=== PATIENT | female | born 1970 | race Hispanic/Latino ===

== ENCOUNTER 2020-01-23 | Emergency (ER) | payer SELFPAY ==
--- NOTE | 2020-01-23 18:38 | ER ---
Nurse's Notes [facility] Name: Eugenia Singleton Age: 49 yrs Sex: Female : 1970 Arrival Date: 01/23/2020 Time: 18:13 Bed 16 Private MD: Diagnosis: Rash and other nonspecific skin eruption Presentation: 01/22 18:16 Chief complaint: Patient states: Rash on R arm x 2 days. Reports itchiness on R arm and ca1 now starting on R side of neck. Denies cough, congestion and fever. Coronavirus screen: Patient denies fever greater than 100.4F, cough, shortness of breath, or difficulty breathing. Proceed with normal triage process. Ebola Screen: Patient negative for fever greater than or equal to 101.5 degrees Fahrenheit, and additional compatible Ebola Virus Disease symptoms Patient denies exposure to infectious person. Patient denies travel to an Ebola-affected area in the 21 days before illness onset. No symptoms or risks identified at this time. Initial Sepsis Screen: Does the patient meet any 2 criteria? No. Patient's initial sepsis screen is negative. Does the patient have a suspected source of infection? No. Patient's initial sepsis screen is negative. Risk Assessment: Do you want to hurt yourself or someone else? Patient reports no desire to harm self or others. Onset of symptoms was January 22, 2020. 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 - Social history:: Smoking status: Patient denies any tobacco usage or history of. Screenin:35 Abuse screen: Denies threats or abuse. Denies injuries from another. Nutritional jl7 screening: No deficits noted. Tuberculosis screening: No symptoms or risk factors identified. Fall Risk None identified. Assessment: 18:35 General: Appears in no apparent distress. uncomfortable. Pain: Denies pain. Neuro: jl7 Level of Consciousness is awake, alert, obeys commands. Cardiovascular: Patient's skin is warm and dry. Respiratory: Airway is patent Respiratory effort is even, unlabored, Respiratory pattern is regular, symmetrical. Derm: Skin is pink, warm \T\ dry. Rash noted that is itchy, red, on right arm. Vital Signs: 18:16 BP 130 / 81; Pulse 80; Resp 17 S; Temp 98(O); Pulse Ox 99% on R/A; Weight 90.72 kg (R); ca1 Height 5 ft. 5 in. (165.10 cm) (R); Pain 0/10; 18:16 Body Mass Index 33.28 (90.72 kg, 165.10 cm) ca1 ED Course: 18:13 Patient arrived in ED. ag5 18:18 Triage completed. ca1 18:19 Arm band placed on right wrist. ca1 18:22 Mojgan Velazco, RN is Primary Nurse. jl7 18:25 Zelda Petersen FNP-C is PHCP. snw 18:25 Carlos Perez MD is Attending Physician. snw 18:35 Patient has correct armband on for positive identification. Bed in low position. Call jl7 light in reach. Side rails up X 1. 18:35 No provider procedures requiring assistance completed. Patient did not have IV access jl7 during this emergency room visit. Administered Medications: No medications were administered Outcome: 18:38 Discharge ordered by . snw 18:44 Discharged to home ambulatory. jl7 18:44 Condition: stable 18:44 Discharge instructions given to patient, Instructed on discharge instructions, follow up and referral plans. medication usage, Demonstrated understanding of instructions, follow-up care, medications, Prescriptions given X 1. 18:44 Patient left the ED. jl7 Signatures: Zelda Petersen FNP-C RADIAL DRILL OPERATOR FOR PLASTIC-Csnw Mojgan Velazco RN RN jl7 Geovanna Gold RN RN ca1 Mat Bass ag5
--- NOTE | 2020-01-23 18:39 | EDPHYS ---
Physician Documentation [facility] Name: Eugenia Singleton Age: 49 yrs Sex: Female : 1970 Arrival Date: 01/23/2020 Time: 18:13 Bed 16 Private MD: ED Physician Carlos Perez HPI: 01/22 19:07 This 49 yrs old Female presents to ER via Ambulatory with complaints of Rash. snw 19:07 The patient's rash thought to be caused by Dermatitis. The rash is located on the right snw arm. The rash can be described as patchy. Onset: The symptoms/episode began/occurred acutely. Associated signs and symptoms: Pertinent positives: itching. Severity of symptoms: At their worst the symptoms were very mild mild. It is unknown whether or not the patient has had similar symptoms in the past. It is unknown whether or not the patient has recently seen a physician. 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 - Social history:: Smoking status: Patient denies any tobacco usage or history of. ROS: 19:06 Constitutional: Negative for fever, chills, and weight loss, Eyes: Negative for injury, snw pain, redness, and discharge, ENT: Negative for injury, pain, and discharge, Neck: Negative for injury, pain, and swelling, Cardiovascular: Negative for chest pain, palpitations, and edema, Respiratory: Negative for shortness of breath, cough, wheezing, and pleuritic chest pain, Abdomen/GI: Negative for abdominal pain, nausea, vomiting, diarrhea, and constipation, Back: Negative for injury and pain, : Negative for injury, bleeding, discharge, and swelling, MS/Extremity: Negative for injury and deformity, Neuro: Negative for headache, weakness, numbness, tingling, and seizure, Psych: Negative for depression, anxiety, suicide ideation, homicidal ideation, and hallucinations. 19:06 Skin: Positive for rash. Exam: 18:42 Constitutional: This is a well developed, well nourished patient who is awake, alert, snw and in no acute distress. Head/Face: Normocephalic, atraumatic. Eyes: Pupils equal round and reactive to light, extra-ocular motions intact. Lids and lashes normal. Conjunctiva and sclera are non-icteric and not injected. Cornea within normal limits. Periorbital areas with no swelling, redness, or edema. ENT: Nares patent. No nasal discharge, no septal abnormalities noted. Tympanic membranes are normal and external auditory canals are clear. Oropharynx with no redness, swelling, or masses, exudates, or evidence of obstruction, uvula midline. Mucous membranes moist. Neck: Trachea midline, no thyromegaly or masses palpated, and no cervical lymphadenopathy. Supple, full range of motion without nuchal rigidity, or vertebral point tenderness. No Meningismus. Chest/axilla: Normal chest wall appearance and motion. Nontender with no deformity. No lesions are appreciated. Cardiovascular: Regular rate and rhythm with a normal S1 and S2. No gallops, murmurs, or rubs. Normal PMI, no JVD. No pulse deficits. Respiratory: Lungs have equal breath sounds bilaterally, clear to auscultation and percussion. No rales, rhonchi or wheezes noted. No increased work of breathing, no retractions or nasal flaring. Abdomen/GI: Soft, non-tender, with normal bowel sounds. No distension or tympany. No guarding or rebound. No evidence of tenderness throughout. Back: No spinal tenderness. No costovertebral tenderness. Full range of motion. MS/ Extremity: Pulses equal, no cyanosis. Neurovascular intact. Full, normal range of motion. Neuro: Awake and alert, GCS 15, oriented to person, place, time, and situation. Cranial nerves II-XII grossly intact. Motor strength 5/5 in all extremities. Sensory grossly intact. Cerebellar exam normal. Normal gait. Psych: Awake, alert, with orientation to person, place and time. Behavior, mood, and affect are within normal limits. 18:42 Skin: Appearance: normal except for affected area, contact dermatitis, on the right arm. Vital Signs: 18:16 BP 130 / 81; Pulse 80; Resp 17 S; Temp 98(O); Pulse Ox 99% on R/A; Weight 90.72 kg (R); ca1 Height 5 ft. 5 in. (165.10 cm) (R); Pain 0/10; 18:16 Body Mass Index 33.28 (90.72 kg, 165.10 cm) ca1 MDM: 18:37 Patient medically screened. snw 19:07 Data reviewed: vital signs, nurses notes. Data interpreted: Pulse oximetry: on room air snw is 99 %. Interpretation: normal. Counseling: I had a detailed discussion with the patient and/or guardian regarding: the historical points, exam findings, and any diagnostic results supporting the discharge/admit diagnosis, the presence of at least one elevated blood pressure reading (>120/80) during this emergency department visit, the need for outpatient follow up, to return to the emergency department if symptoms worsen or persist or if there are any questions or concerns that arise at home. Special discussion: Based on the history and exam findings, there is no indication for further emergent testing or inpatient evaluation. I discussed with the patient/guardian the need to see the primary care provider for further evaluation of the symptoms. Administered Medications: No medications were administered Disposition: 01/23 06:41 Co-signature as Attending Physician, Carlos Perez MD I agree with the assessment and kdr plan of care. Disposition: 01/23/20 18:38 Discharged to Home. Impression: Rash and other nonspecific skin eruption. - Condition is Stable. - Discharge Instructions: Rash. - Prescriptions for Zyrtec 10 mg Oral Tablet - take 1 tablet by ORAL route once daily As needed; 20 tablet. - Work release form, Medication Reconciliation Form, Thank You Letter, Antibiotic Education, Prescription Opioid Use form. - Follow up: Emergency Department; When: As needed; Reason: Worsening of condition. Follow up: Private Physician; When: 2 - 3 days; Reason: Recheck today's complaints, Continuance of care, Re-evaluation by your physician. Signatures: Carlos Perez MD MD kdr Therrien, Shelly, ASSISTANT PROFESSOR OF CRIMINAL JUSTICE-C ASSISTANT PROFESSOR OF CRIMINAL JUSTICE-Csnw Mojgan Velazco RN RN jl7 Geovanna Gold RN RN ca1 Corrections: (The following items were deleted from the chart) 01/22 18:44 18:38 01/23/2020 18:38 Discharged to Home. Impression: Rash and other nonspecific skin jl7 eruption. Condition is Stable. Forms are Medication Reconciliation Form, Thank You Letter, Antibiotic Education, Prescription Opioid Use. Follow up: Emergency Department; When: As needed; Reason: Worsening of condition. Follow up: Private Physician; When: 2 - 3 days; Reason: Recheck today's complaints, Continuance of care, Re-evaluation by your physician. snw
== END 2020-01-23 18:44 | disposition home or self-care (01) ==
CPT/HCPCS: 99282